=== PATIENT | female | born 1945 | race Hispanic/Latino ===

== ENCOUNTER 2021-04-18 02:05 | Emergency (ER) | payer OTHER ==
[2021-04-18] MEDS ORDERED: IBUPROFEN 400 MG TAB ONE (02:34)
[2021-04-18] MEDS ORDERED: IBUPROFEN 200 MG TAB PO ONE (02:34)
[2021-04-18] MEDS ORDERED: HYDROCODONE/APAP 5/325 MG TAB ONE (02:34)
[2021-04-18] MEDS ORDERED: HYDROCORTISONE ACETATE 25MG SUPP PR ONE (02:49)
--- NOTE | 2021-04-18 03:58 | ER ---
Nurse's Notes [facility] Name: Amber Aguirre Age: 75 yrs Sex: Female : 1945 Arrival Date: 04/18/2021 Time: 02:09 Bed 26 Private MD: Diagnosis: Unspecified hemorrhoids;Encounter for surgical aftercare following surgery on the digestive system-Anorectal Presentation: 04/18 02:21 Chief complaint: Spouse and/or significant other states: pt had hemorrhoid surgery last bb by Dr James and is having a lot of pain. Coronavirus screen: At this time, the client does not indicate any symptoms associated with coronavirus-19. Ebola Screen: No symptoms or risks identified at this time. Initial Sepsis Screen: Does the patient meet any 2 criteria? No. Patient's initial sepsis screen is negative. Does the patient have a suspected source of infection? No. Patient's initial sepsis screen is negative. Risk Assessment: Do you want to hurt yourself or someone else? Patient reports no desire to harm self or others. Onset of symptoms was April 18, 2021. 02:21 Method Of Arrival: Ambulatory bb 02:21 Acuity: [place] 3 bb Historical: - Allergies: 02:23 No Known Allergies; bb - Home Meds: 02:23 levothyroxine 125 mcg tab 1 tab once daily [Active]; metoprolol tartrate 25 mg Oral tab bb 1 tab once daily [Active]; simvastatin 40 mg Oral tab 1 tab once daily [Active]; losartan oral [Active]; Methotrexate Sodium Oral [Active]; - PMHx: 02:23 High Cholesterol; Hypertension; restless leg syndrome; Arthritis; bb - PSHx: 02:23 Hemorrhoidectomy; bb - Immunization history:: Adult Immunizations up to date, Client reports receiving the 2nd dose of the Covid vaccine. - Social history:: Smoking status: unknown. - Family history:: not pertinent. - Hospitalizations: : No recent hospitalization is reported. Screenin:35 Abuse screen: Denies threats or abuse. Nutritional screening: No deficits noted. fu Tuberculosis screening: No symptoms or risk factors identified. Fall Risk None identified. Assessment: 02:24 General: Appears uncomfortable, Behavior is calm, cooperative, appropriate for age. fu Pain: Complains of pain in rectum Pain does not radiate. Pain currently is 10 out of 10 on a pain scale. Neuro: Level of Consciousness is awake, alert, obeys commands. Cardiovascular: Denies chest pain, nausea, vomiting. Respiratory: Airway is patent Respiratory effort is even, unlabored, Respiratory pattern is regular. EENT: No signs and/or symptoms were reported regarding the EENT system. Derm: Derm: s/p hemorrhoidectomy last , no bleeding noted. 03:03 Reassessment: Patient appears in no apparent distress at this time. Patient and/or fu family updated on plan of care and expected duration. Pain level reassessed. Patient is alert, oriented x 3, equal unlabored respirations, skin warm/dry/pink. 03:26 Reassessment: Patient and/or family updated on plan of care and expected duration. Pain fu level reassessed. Patient is alert, oriented x 3, equal unlabored respirations, skin warm/dry/pink. Patient states feeling better. Vital Signs: 02:21 BP 147 / 62; Pulse 62; Resp 18 S; Temp 98.4(O); Pulse Ox 97% on R/A; Weight 78.93 kg bb (R); Height 5 ft. 2 in. (157.48 cm) (R); Pain 10/10; 02:30 BP 150 / 70; Pulse 53; Resp 16; Pulse Ox 98% on R/A; Pain 10/10; fu 03:24 BP 153 / 61; Pulse 57; Resp 15; Pulse Ox 96% on R/A; fu 02:21 Body Mass Index 31.82 (78.93 kg, 157.48 cm) ED Course: 02:09 Patient arrived in ED. wm 02:23 Roverto Duenas, RN is Primary Nurse. fu 02:23 Triage completed. bb 02:23 Raymond Munguia MD is Attending Physician. rn 02:23 Arm band placed on Patient placed in an exam room, on a stretcher, on pulse oximetry. Family accompanied patient. 02:36 Pulse ox on. NIBP on. fu 02:36 Bed in low position. Call light in reach. Side rails up X 1. fu 03:57 Esteban James MD is Referral Physician. rn 04:06 No provider procedures requiring assistance completed. Patient did not have IV access fu during this emergency room visit. Administered Medications: 02:44 Drug: HYDROcodone-acetaminophen 5 mg-325 mg 1 tabs Route: PO; ad1 03:42 Follow up: Response: Pain is decreased fu 03:00 Not Given (not available, notifiedd): Anusol Ointment 1 inches GA once fu 03:01 Drug: Anusol-HC Suppository 25 mg 25 mg Route: GA; ad1 03:41 Follow up: Response: No adverse reaction fu 03:18 Not Given (patient states possible allergyy): Motrin (ibuprofen) 600 mg PO once ad1 Outcome: 03:58 Discharge ordered by . rn 04:05 Discharged to home ambulatory, with significant other. fu 04:05 Condition: good 04:05 Discharge instructions given to patient, Instructed on discharge instructions, follow up and referral plans. Demonstrated understanding of instructions, follow-up care, Prescriptions given X 0 04:06 Patient left the ED. fu Signatures: Filomena Banks RN RN Raymond Munguia MD MD rn DelToro, Anna, RN RN ad1 Roverto Duenas RN RN fu Marsh, Wendy
--- NOTE | 2021-04-18 03:58 | EDPHYS ---
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 02:52 The patient presents to the emergency department with pain in the rectal area. Onset: rn The symptoms/episode began/occurred 2 day(s) ago. Context: the patient is post surgical, hemorrhoidectomy, on April 16, 2021. Modifying factors: The symptoms are alleviated by prescription meds, The symptoms are aggravated by sitting position. Associate signs and symptoms: Pertinent negatives: abdominal pain, fever, lower GI bleeding. The patient has experienced a previous episode. The patient has been recently seen by a physician:. Patient states had hemorrhoid surgery by Dr. James 2 days ago. Sent home with Tylenol 3 and having more pain tonight. States has not had a bowel movement. Reports is passing gas. Has not noticed any bleeding. Reports pain and feels itching at anus. Denies fever or abdominal pain.. Historical: - Allergies: 02:23 No Known Allergies; bb - Home Meds: 02:23 levothyroxine 125 mcg tab 1 tab once daily [Active]; metoprolol tartrate 25 mg Oral tab bb 1 tab once daily [Active]; simvastatin 40 mg Oral tab 1 tab once daily [Active]; losartan oral [Active]; Methotrexate Sodium Oral [Active]; - PMHx: 02:23 High Cholesterol; Hypertension; restless leg syndrome; Arthritis; bb - PSHx: 02:23 Hemorrhoidectomy; bb - Immunization history:: Adult Immunizations up to date, Client reports receiving the 2nd dose of the Covid vaccine. - Social history:: Smoking status: unknown. - Family history:: not pertinent. - Hospitalizations: : No recent hospitalization is reported. ROS: 02:52 Constitutional: Negative for fever, chills, and weight loss, Abdomen/GI: Positive for rn postsurgical pain at anus Exam: 02:52 Constitutional: This is a well developed, well nourished patient who is awake, alert, rn and in no acute distress. Cardiovascular: Regular rate and rhythm. No pulse deficits. Respiratory: No increased work of breathing, no retractions or nasal flaring. Abdomen/GI: Soft, nontender, postsurgical changes of hemorrhoidectomy, no active bleeding, no drainage, no sign of cellulitis. No evidence of perirectal abscess. No thrombosed hemorrhoid Vital Signs: 02:21 BP 147 / 62; Pulse 62; Resp 18 S; Temp 98.4(O); Pulse Ox 97% on R/A; Weight 78.93 kg bb (R); Height 5 ft. 2 in. (157.48 cm) (R); Pain 10/10; 02:30 BP 150 / 70; Pulse 53; Resp 16; Pulse Ox 98% on R/A; Pain 10/10; fu 03:24 BP 153 / 61; Pulse 57; Resp 15; Pulse Ox 96% on R/A; fu 02:21 Body Mass Index 31.82 (78.93 kg, 157.48 cm) bb MDM: 02:23 Patient medically screened. rn 03:55 Differential diagnosis: hemorrhoids, Postsurgical pain. Data reviewed: vital signs, rn nurses notes, and as a result, I will discharge patient. Counseling: I had a detailed discussion with the patient and/or guardian regarding: the historical points, exam findings, and any diagnostic results supporting the discharge/admit diagnosis, the need for outpatient follow up, to return to the emergency department if symptoms worsen or persist or if there are any questions or concerns that arise at home. Response to treatment: the patient's symptoms have mildly improved after treatment, and as a result, I will discharge patient. Special discussion: I discussed with the patient/guardian in detail that at this point there is no indication for admission to the hospital. It is understood, however, that if the symptoms persist or worsen the patient needs to return immediately for re-evaluation. ED course: Patient improved here after hydrocodone administration. Will DC home with continuation of sits baths and pain medication the Dr. James prescribed. states that patient was worried about taking too but told on the prescription she could take up to 2 Tylenol 3's. Reassured her that she would be okay as she tolerated hydrocodone here. Patient will call with Dr. James and make follow-up appointment. Return precautions given and understood. Told to take stool softeners as well as lots of water.. Administered Medications: 02:44 Drug: HYDROcodone-acetaminophen 5 mg-325 mg 1 tabs Route: PO; ad1 03:42 Follow up: Response: Pain is decreased fu 03:00 Not Given (not available, notifiedd): Anusol Ointment 1 inches NM once fu 03:01 Drug: Anusol-HC Suppository 25 mg 25 mg Route: NM; ad1 03:41 Follow up: Response: No adverse reaction fu 03:18 Not Given (patient states possible allergyy): Motrin (ibuprofen) 600 mg PO once ad1 Disposition Summary: 04/18/21 03:58 Discharge Ordered Location: Home rn Problem: new rn Symptoms: have improved rn Condition: Stable rn Diagnosis - Unspecified hemorrhoids rn - Encounter for surgical aftercare following surgery on the digestive system - rn Anorectal Followup: rn - With: Esteban James MD - When: 2 - 3 days - Reason: Recheck today's complaints, Re-evaluation by your physician Discharge Instructions: - Discharge Summary Sheet rn - Hemorrhoids rn - Surgical Procedures for Hemorrhoids rn Forms: - Medication Reconciliation Form rn - Thank You Letter rn - Antibiotic rn clinical trials - Prescription Opioid Use rn Signatures: Filomena Banks, RN RN bb Raymond Munguia MD MD rn DelToro, Anna, RN RN ad1 Roverto Duenas RN RN fu
[2021-04-18 04:13] VITALS: TEMP 98.4
[2021-04-18 04:15] VITALS: BP 153/61; O2SAT 96
--- OUTSIDE RECORDS SUMMARY | 2021-04-25 14:02 | XMS REPORT | Continuity of Care Document ---
:1945 Author Organization [facility] t Address [address] [place] [address] [address]. [address] [place] [address] Care Team Providers Name Role Phone Raji STEWART, T Attending Clinician Unavailable RAQUEL Attending Clinician Unavailable Carlos Gonzales MD Attending Clinician Raquel FLORIAN Attending Clinician Doctor Unassigned, Name Attending Clinician Unavailable Nadira VALERO Attending Clinician Unavailable Lab, Fam Pob I Attending Clinician Unavailable Payers Payer Name Policy Type Policy Number Effective Date Expiration Date S belle BARRINGTON [id number] 2020 00:00:00 HEALTHCARE/AARP Problems Condition Condition Condition Status Onset Resolution Last Treating Co mments Source Name Details Category Date Date Treatment Clinician Date No known No known Disease Unive rs active active ity of problems problems [facility] Allergies, Adverse Reactions, Alerts Allergy Allergy Status Severity Reaction(s) Onset Inactive Treating Comm ents Source Name Type Date Date Clinician NO KNOWN Drug Active Univers ALLERGIE Class ity of S [facility] Social History Social Habit Start Date Stop Date Quantity Comments Source Exposure to Not sure [facility] SARS-CoV-2 (event) Medica l Branch Tobacco use and 2021-01-28 2021-01-28 Never used [facility] exposure 00:00:00 00:00:00 [facility] Sex Assigned [birth year] [facility] 00:00:00 00:00:00 [facility] Smoking Status Start Date Stop Date Source Unknown if ever smoked [facility] Never smoker [facility] Medications Ordered Filled Start Stop Current Ordering Indication Dosage Frequency Signature Comments Components Source Medication Medication Date Date Medication? Clinician (SIG) Name Name acetaminoph Yes 1/2 - 1 Uni vers en-codeine 7-22 tab Every ity of 300-30 mg 00:00: 4hrs as [place] tablet 00 needed for Medical pain or Branch cough requiring narcotic Indication s: cough acetaminoph 2020-0 Yes 1/2 - 1 Uni vers en-codeine 7-22 tab Every ity of 300-30 mg 00:00: 4hrs as [place] tablet 00 needed for Medical pain or Branch cough requiring narcotic Indication s: cough methotrexat 2020-0 Yes Take by Uni vers e 2.5 mg 7-20 mouth ity of tablet 00:00: [place] [facility] methotrexat 2020-0 Yes Take by Uni vers e 2.5 mg 7-20 mouth ity of tablet 00:00: [place] [facility] foLIC acid 2020-0 Yes 1mg Take 1 mg Un gerard 1 mg tablet 7-08 by mouth ity of 00:00: daily. [place] [facility] levothyroxi 2020-0 Yes Univer s ne 100 mcg 7-08 ity of tablet 00:00: [place] [facility] foLIC acid 2020-0 Yes 1mg Take 1 mg Un gerard 1 mg tablet 7-08 by mouth ity of 00:00: daily. [place] [facility] levothyroxi 2020-0 Yes Univer s ne 100 mcg 7-08 ity of tablet 00:00: [place] [facility] cyclobenzap 2020-0 Yes Univer s rine 10 mg 6-24 ity of tablet 00:00: [place] [facility] cyclobenzap 2020-0 Yes Univer s rine 10 mg 6-24 ity of tablet 00:00: [place] [address] Medical Branch losartan 25 1-0 Yes Univer s mg tablet 6-22 ity of 00:00: [place] [address] Medical Branch losartan 25 1-0 Yes Univer s mg tablet 6-22 ity of 00:00: [place] [address] Medical Branch simvastatin 1-0 Yes Univer s 40 mg 6-21 ity of tablet 00:00: [place] [address] Medical Branch simvastatin 1-0 Yes Univer s 40 mg 6-21 ity of tablet 00:00: [place] [facility] metoprolol 2020-0 Yes Univers tartrate 25 6-04 ity of mg tablet 00:00: [place] [address] Medical Branch metoprolol 2020-0 Yes Univers tartrate 25 6-04 ity of mg tablet 00:00: Medical Branch leflunomide Yes 10mg Take 10 mg Univers 10 mg 5-28 by mouth ity of tablet 00:00: daily. [facility] leflunomide Yes 10mg Take 10 mg Univers 10 mg 5-28 by mouth ity of tablet 00:00: daily. [facility] azithromyci Yes TK 2 TS PO Univers n 250 mg 5-07 ON DAY 1, ity of tablet 00:00: THEN TK 1 [place] T PO D FOR Medical 4 DAYS Branch azithromyci Yes TK 2 TS PO Univers n 250 mg 5-07 ON DAY 1, ity of tablet 00:00: THEN TK 1 [place] T PO D FOR Medical 4 DAYS Branch omeprazole Yes 40mg Take 40 mg U nivers 40 mg 4-26 by mouth ity of capsule 00:00: daily. [facility] omeprazole Yes 40mg Take 40 mg U nivers 40 mg 4-26 by mouth ity of capsule 00:00: daily. [place] [facility] hydrocortis 2019-06 Yes APPLY Unive rs one 2.5 % 2-18 RECTALLY ity of rectal 00:00: TO THE [place] cream 00 AFFECTED Medical AREA TWICE Branch DAILY hydrocortis 2019-06 Yes APPLY Unive rs one 2.5 % 2-18 RECTALLY ity of rectal 00:00: TO THE [place] cream 00 AFFECTED Medical AREA TWICE Branch DAILY cetirizine 2019-06 Yes 10mg Take 10 mg U nivers 10 mg 0-27 by mouth. ity of tablet 00:00: [place] [facility] cetirizine 2019-06 Yes 10mg Take 10 mg U nivers 10 mg 0-27 by mouth. ity of tablet 00:00: [address] Vital Signs Vital Name Observation Time Observation Value Comments Source Systolic blood 2021-01-01 13:57:00 148 mm[Hg] Univer sity of pressure [facility] Diastolic blood 2021-01-01 13:57:00 64 mm[Hg] Unive rsity of pressure [facility] Heart rate 2021-01-01 13:57:00 56 /min Universi ty [facility] Body temperature 2021-01-01 13:57:00 36.67 Charu Univ ersity [facility] Respiratory rate 2021-01-01 13:57:00 16 /min [facility] height 2021-01-01 13:57:00 157.5 cm [facility] Body weight 2021-01-01 13:57:00 82.555 kg [facility] BMI 2021-01-01 13:57:00 33.29 kg/m2 [facility] Oxygen saturation in 2021-01-01 13:57:00 97 /min [facility] Arterial blood by [facility] Pulse oximetry [place] Procedures Procedure Date / Time Performed Performing Clinician Sourc e POCT GRP A STREP 2021-01-01 14:15:00 Yamila García [facility] (MOLECULAR) [facility] ASSIGNMENT OF BENEFITS 2021-01-01 12:51:28 Doctor Unassigned, No [facility] Name Medical [place] Encounters Start End Encounter Admission Attending Care Care Encounter Source Date/Time Date/Time Type Type Clinicians Facility Department ID 2021-01-29 2021-01-29 Letter DAVE Alegria [id number] Univers 00:00:00 00:00:00 (Out) Rosalee Zhou LINDA [id number] y [facility] [id number] [place] as [phone] [address] 2021-01-28 2021-01-28 Outpatient R [facility] [id number] Univers 09:00:00 09:00:00 [id number] ity [facility] 2021-01-28 2021-01-28 Outpatient Monserrat GARCÍA [facility] [id number] Univers 09:00:00 09:00:00 YAMILA ity [facility] 2021-01-01 2021-01-01 Outpatient R [facility] [id number] Univers 09:00:00 09:00:00 [id number] ity [facility] 2021-01-01 2021-01-01 Outpatient Monserrat GARCÍA [facility] [id number] Univers 09:00:00 09:00:00 YAMILA ity [facility] 2021-01-01 2021-01-01 Urgent Cesar Gonzales [facility] [id number] Univers 07:54:59 08:14:59 Care Yamila García [id number] ity of [place] [id number] [place] as Professio [phone] [address] Office Building One 2021-01-01 2021-01-01 Orders Doctor DAVE [id number] Univers 00:00:00 00:00:00 Only Unassigned, LINDA [id number] ity of [place] [facility] [id number] O[place] as [phone] [address] 2020-10-03 2020-10-03 Outpatient R MARYLU [facility] [id number] Univers 11:00:00 11:00:00 REMBERTO [id number] [facility] 2020-10-03 2020-10-03 Outpatient R MARYLU [facility] [id number] [facility] 11:00:00 11:00:00 REMBERTO [facility] 2020-06-14 2020-06-14 Laboratory Lab, Adc Fam Pob I [facility] [id number] Univers 08:38:33 08:58:33 Only Yamila García [facility] [id number] ity of [place] [id number] [place] as Professio [phone] [address] One 2020-06-14 2020-06-14 Outpatient R RAQUEL [facility] [id number] Univers 08:40:00 08:40:00 [facility] Results Test Description Test Time Test Comments Results Result Comments Source POCT GRP A STREP (MOLECULAR) 2021-01-01 14:15:00 Test Item Value Reference Range Interpretation Comme nts POCT GP A STREP (test code = 38097-0) Negative Negative - Negat cory Lab Interpretation (test code = 79695-4) Normal [facility]
== END 2021-04-18 04:06 | disposition home or self-care (01) ==
LOC: ER 02:05
DX: K64.9 Unspecified hemorrhoids (principal); Z98.890 Other specified postprocedural states; I10 Essential (primary) hypertension; E78.00 Pure hypercholesterolemia, unspecified
CPT/HCPCS: 99283